=== PATIENT | female | born 1950 | race Hispanic/Latino ===

== ENCOUNTER → 2017-05-28 | Outpatient (CLI) | payer MEDICARE ==
[2017-05-28 14:41] LABS: CREATININE 0.8 mg/dL (0.5-1.5)
== END ==
LOC: LAB 13:29
PROVIDERS: ATTEND Urology
DX: R31.0 Gross hematuria (principal); Z87.898 Personal history of other specified conditions
CPT/HCPCS: 36415; 82565; 84520

== ENCOUNTER → 2017-06-03 | Outpatient (CLI) | payer MEDICARE ==
[~2017-06-03] MED LIST: IOPAMIDOL-370 75 ML VIAL IV ONE
== END | disposition home or self-care (01) ==
LOC: RAH 09:25
PROVIDERS: ATTEND Urology
DX: N20.0 Calculus of kidney (principal); N28.1 Cyst of kidney, acquired; K57.30 Diverticulosis of large intestine without perforation or abscess without bleeding; Z90.6 Acquired absence of other parts of urinary tract; Z98.890 Other specified postprocedural states
CPT/HCPCS: 74178; Q9967

== ENCOUNTER → 2019-02-22 | Outpatient (CLI) | payer MEDICARE | END | disposition home or self-care (01) | LOC: RAH 08:48 | PROVIDERS: ATTEND Surgery | DX: N13.2 Hydronephrosis with renal and ureteral calculous obstruction (principal); N28.1 Cyst of kidney, acquired; Z90.49 Acquired absence of other specified parts of digestive tract | CPT/HCPCS: 74150 ==

== ENCOUNTER → 2022-12-20 | Outpatient (CLI) | payer MEDICARE | END | disposition home or self-care (01) | LOC: RAH 10:00 | PROVIDERS: ATTEND Physician Assistant Medical | DX: M47.22 Other spondylosis with radiculopathy, cervical region (principal); M54.30 Sciatica, unspecified side; M50.123 Cervical disc disorder at C6-C7 level with radiculopathy; M48.02 Spinal stenosis, cervical region | CPT/HCPCS: 72141 ==